=== PATIENT | male | born 1990 | race Caucasian/White ===

== ENCOUNTER 2021-01-16 01:11 | Emergency (ER) | payer SELFPAY ==
[~2021-01-16] VITALS: Ht 190.5 cm; Wt 118.2 kg
[2021-01-16 01:19] VITALS: BP 120/69; PULSE 102; TEMP 97.8
[2021-01-16] MEDS ORDERED: CELEXA 20MG20 MG/TAB PO (01:22)
== END 2021-01-16 02:19 | disposition home or self-care (01) ==
LOC: COL.ER 01:11
DX: I83.892 Varicose veins of left lower extremity with other complications (principal); F17.210 Nicotine dependence, cigarettes, uncomplicated

== ENCOUNTER → 2021-01-26 | Outpatient (CLI) | payer SELFPAY ==
[~2021-01-26] MED LIST: CELEXA 20MG20 MG/TAB PO
[2021-01-26 11:29] VITALS: BP 136/94; PULSE 85; TEMP 97.3
== END ==
LOC: COL.ER 11:11
DX: Z48.02 Encounter for removal of sutures (principal)

== ENCOUNTER 2022-08-22 13:31 | Emergency (ER) | payer OTHER ==
[~2022-08-22] VITALS: Ht 190.5 cm; Wt 125.0 kg
[2022-08-22 13:37] VITALS: TEMP 97.8
[2022-08-22 15:12] LABS: BASO # 0.1 K/mm3 (0.0-0.2); BASO % 0.6 % (0.0-2.0); EOS % 0.4 % (0.0-4.0); GRAN # 6.6 K/mm3 (1.4-6.5); GRAN % 74.3 % (42.2-75.2); HEMATOCRIT 46.2 % (42.0-52.0); HEMOGLOBIN 15.8 g/dl (13.5-18.0); LYMPH # 1.5 K/mm3 (1.2-3.4); LYMPH % 16.5 % (20.0-51.0); MEAN CELL VOLUME 84 fl (80.0-100.0); MEAN CORPUSCULAR HEMOGLOBIN 29 pg (27-31); MEAN CORPUSCULAR HGB CONC 34 g/dl (33.0-37.0); MEAN PLATELET VOLUME 12.1 fl (7.4-10.4); MONO # 0.7 K/mm3 (0.1-0.6); PLATELET COUNT 267 K/mm3 (130-400)
[2022-08-22 15:27] LABS: ALANINE AMINOTRANSFERASE 38 U/L (0-55); ALBUMIN 4.5 gm/dL (3.5-5.0); ALKALINE PHOSPHATASE 55 U/L (40-150); ANION GAP 11 mmol/L (7-16); AST,SGOT 25 U/L (5-34); BILIRUBIN,TOTAL 0.5 mg/dL (0.2-1.2); BLOOD UREA NITROGEN 14 mg/dL (9-21); CALCIUM 9.5 mg/dL (8.4-10.2); CARBON DIOXIDE 22 mmol/L (22-29); CHLORIDE 107 mmol/L (98-107); CREATININE, serum 0.88 mg/dL (0.72-1.25); GLUCOSE 93 mg/dL (70-99); POTASSIUM 3.8 mmol/L (3.5-4.5); SODIUM 140 mmol/L (136-145); TOTAL PROTEIN 7.5 gm/dL (6.2-8.1)
[2022-08-22 15:28] LABS: ALCOHOL(ethanol),MEDICAL < 10 mg/dL (0-10)
[2022-08-22 16:11] LABS: COLLECTION METHOD CLEAN CATCH
[2022-08-22 16:20] LABS: MUCOUS Present (NOT PRESENT); SQUAMOUS EPITHELIAL None Seen /hpf (0-10); URINE BACTERIA None Seen /hpf (NONE SEEN); URINE KETONE TRACE (NEGATIVE); URINE RBC 0-2 /hpf (0-2)
[2022-08-22 16:21] LABS: TRICYCLIC ANTIDEPRESS URINE NEGATIVE; URINE APPEARANCE Clear (CLEAR/HAZY); URINE BLOOD Negative (NEGATIVE); URINE COLOR Yellow (YELLOW); URINE GLUCOSE Negative (NEGATIVE); URINE NITRATE Negative (NEGATIVE); URINE PROTEIN(semi-quant) Negative (NEGATIVE); URINE UROBILINOGEN 0.2 E.U/dL (0.2-1.0)
[2022-08-22 17:00] VITALS: BP 134/86; PULSE 92
== END 2022-08-22 17:02 | disposition home or self-care (01) ==
LOC: COL.ER 13:31
PROVIDERS: Nurse Practitioner
DX: R55 Syncope and collapse (principal); F17.290 Nicotine dependence, other tobacco product, uncomplicated; Z28.310 Unvaccinated for COVID-19
CPT/HCPCS: J2060; J7030

== ENCOUNTER 2023-09-28 18:17 | Emergency (ER) | payer SELFPAY ==
[~2023-09-28] VITALS: Ht 190.5 cm; Wt 115.0 kg
[~2023-09-28 18:17] MED LIST changes: +ANTIVERT 25MG25 MG PO
[2023-09-28] MEDS ORDERED: Acetaminophen 500 MG TAB PO ONE (18:30)
[2023-09-28] MEDS ORDERED: Ondansetron 4 MG/2 ML VIAL IV ONE (18:30)
[2023-09-28] MEDS ORDERED: LR 1,000 ML IV ONE (18:30)
[2023-09-28 18:47] LABS: BASO # 0.1 K/mm3 (0.0-0.2); BASO % 0.7 % (0.0-2.0); EOS # 0.1 K/mm3 (0.0-0.7); EOS % 1.3 % (0.0-4.0); GRAN # 5.2 K/mm3 (1.4-6.5); GRAN % 64.1 % (42.2-75.2); HEMATOCRIT 43.6 % (42.0-52.0); HEMOGLOBIN 14.7 g/dl (13.5-18.0); LYMPH % 24.1 % (20.0-51.0); MEAN CELL VOLUME 87 fl (80.0-100.0); MEAN CORPUSCULAR HEMOGLOBIN 29 pg (27-31); MEAN CORPUSCULAR HGB CONC 34 g/dl (33.0-37.0); MEAN PLATELET VOLUME 10.9 fl (7.4-10.4); MONO # 0.8 K/mm3 (0.1-0.6); MONO % 9.7 % (1.7-9.3); PLATELET COUNT 290 K/mm3 (130-400); RED BLOOD COUNT 5.02 M/mm3 (4.20-5.60); REDCELL DISTRIBUTION WIDTH-CV 13.2 % (11.5-14.5)
[2023-09-28 19:39] LABS: ALANINE AMINOTRANSFERASE 27 U/L (0-55); ALBUMIN 3.8 g/dL (3.5-5.0); ALKALINE PHOSPHATASE 61 U/L (40-150); ANION GAP 12 mmol/L (7-16); AST,SGOT 21 U/L (5-34); BILIRUBIN,TOTAL 0.3 mg/dL (0.2-1.2); BLOOD UREA NITROGEN 22 mg/dL (9-21); CALCIUM 9.4 mg/dL (8.4-10.2); CHLORIDE 110 mEq/L (98-107); CREATININE, serum 0.81 mg/dL (0.72-1.25); GLUCOSE 90 mg/dL (70-99); POTASSIUM 4.3 mEq/L (3.5-4.5); SODIUM 140 mEq/L (136-145); TOTAL PROTEIN 7.2 g/dl (6.2-8.1)
[2023-09-28 19:44] LABS: TROPONIN-I < 0.010 ng/mL (0.00-0.033)
[2023-09-28 21:26] VITALS: BP 124/82; PULSE 66; TEMP 98
== END 2023-09-28 21:26 | disposition home or self-care (01) ==
LOC: COL.ER 18:17
PROVIDERS: Emergency Medicine
DX: R55 Syncope and collapse (principal); W22.8XXA Striking against or struck by other objects, initial encounter; Y93.01 Activity, walking, marching and hiking; Y92.59 Other trade areas as the place of occurrence of the external cause; Y99.0 Civilian activity done for income or pay
CPT/HCPCS: J2405; J7120